=== PATIENT | male | born 1970 | race Two or more races ===

== ENCOUNTER 2020-12-30 07:38 | Outpatient (CLI) | payer OTHER ==
[~2020-12-30 07:38] MED LIST: PRILOSEC10 MG PO
== END 2020-12-30 07:55 | disposition home or self-care (01) ==
LOC: TOM 07:38
DX: E26.89 Other hyperaldosteronism (principal); R31.1 Benign essential microscopic hematuria; E87.6 Hypokalemia; I12.9 Hypertensive chronic kidney disease with stage 1 through stage 4 chronic kidney disease, or unspecified chronic kidney disease

== ENCOUNTER 2022-08-28 10:43 | Outpatient (CLI) | payer OTHER | END 2022-08-28 10:54 | disposition home or self-care (01) | LOC: LAB 10:43 | PROVIDERS: ATTEND Radiology Diagnostic Radiology | DX: R59.0 Localized enlarged lymph nodes (principal) ==

== ENCOUNTER 2022-08-29 07:33 | Outpatient (CLI) | payer OTHER | END 2022-08-29 08:00 | disposition home or self-care (01) | LOC: TOM 07:33 | PROVIDERS: ATTEND Otolaryngology | DX: R59.0 Localized enlarged lymph nodes (principal); K11.20 Sialoadenitis, unspecified ==